=== PATIENT | female | born 2000 | race Caucasian/White ===

== ENCOUNTER 2022-06-25 10:18 | Inpatient (IN) ==
[2022-06-25] MEDS ORDERED: SODIUM CHLORIDE 0.9% 1000ML 1,000 ML IV ONE (11:46)
--- NOTE | 2022-06-25 11:51 | Emergency Department Note ---
History of Present Illness General Chief complaint: Tachycardia Stated complaint: CHEST DISCOMFORT, TACHYCARDIA, HAND NUMBNESS Time Seen by Provider: 06/25/22 11:36 Source: patient, RN notes reviewed and old records reviewed Mode of arrival: ambulatory Limitations: no limitations History of Present Illness Maximum Pain Intensity: 6 This patient is a 22-year-old female who comes in after having heart racing. She says started Thursday evening she felt shaky and her heart was racing up to 149 times a minute she is also some chest discomfort and back pain at times. She felt faint yesterday and tingling in her arms and legs and also her tongue at 1 point this is been bilateral. She has been hyperventilating and feeling anxious she has a history of anxiety in the past with thought this might feel different. No fever no syncope no cough. No blood or melena stool denies she is had nausea and no emesis. Abdominal pain. No diarrhea. No overdose. no suicidal ideation or extra medication Allergies Allergy/AdvReac Type Severity Reaction Status Date / Time No Known Allergies Allergy Unverified 06/25/22 14:46 Past Med/Surg History Family History (Updated 06/25/22 @ 16:05 by AUGUSTO Zelaya) Mother Cancer Sister Schizophrenia Other Depression Denies family history of Clotting disorder Social History Smoking Status: Never smoker Preferred Language: Ma[place] Feels Safe at Home: Yes Immunizations: Past medical historyanxiety. Denies cardiac disease, pulmonary disease, blood clots, thyroid disease. She is not on oral contraceptives. Social historydoes not smoke or drink or use drugs. [employer] student Review of Systems A total of 10 systems reviewed and were otherwise negative Physical Exam Vital Signs Vital Signs - 24 hr 06/25/22 10:25 06/25/22 10:35 06/25/22 10:36 Temperature 36.7 C Temperature Source Temporal Artery Scan Pulse Rate 118 H Pulse Rate [Apical] Pulse Rhythm Regular Pulse Strength Normal Respiratory Rate 20 Respiratory Effort / Characteristics Non-Labored Spontaneous Non-Labored Spontaneous Respiratory Depth Normal Normal Respiratory Pattern Regular Regular Blood Pressure 113/63 Blood Pressure [Right Arm] Blood Pressure Mean 79 Blood Pressure Mean [Right Arm] Blood Pressure Position Sitting Blood Pressure Position [Right Arm] Pulse Oximetry 99 99 Oxygen Delivery Method Room Air Room Air Sepsis Recent Fever Within 48 Hours No Sepsis New/Unexplained Change in Mental Status No Sepsis Action Taken by Nursing No Action Required 06/25/22 11:18 06/25/22 12:30 06/25/22 14:29 Temperature Temperature Source Pulse Rate Pulse Rate [Apical] 97 H 84 96 H Pulse Rhythm Pulse Strength Respiratory Rate 20 18 18 Respiratory Effort / Characteristics Non-Labored Spontaneous Non-Labored Non-Labored Spontaneous Respiratory Depth Normal Normal Normal Respiratory Pattern Blood Pressure Blood Pressure [Right Arm] 130/86 113/65 132/61 Blood Pressure Mean Blood Pressure Mean [Right Arm] 100 81 84 Blood Pressure Position Blood Pressure Position [Right Arm] Lying Lying Pulse Oximetry 98 100 98 Oxygen Delivery Method Room Air Room Air Room Air Sepsis Recent Fever Within 48 Hours Sepsis New/Unexplained Change in Mental Status Sepsis Action Taken by Nursing 06/25/22 15:38 Temperature Temperature Source Pulse Rate Pulse Rate [Apical] 95 H Pulse Rhythm Pulse Strength Respiratory Rate 18 Respiratory Effort / Characteristics Non-Labored Spontaneous Respiratory Depth Normal Respiratory Pattern Blood Pressure Blood Pressure [Right Arm] 120/78 Blood Pressure Mean Blood Pressure Mean [Right Arm] 92 Blood Pressure Position Blood Pressure Position [Right Arm] Lying Pulse Oximetry 100 Oxygen Delivery Method Room Air Sepsis Recent Fever Within 48 Hours Sepsis New/Unexplained Change in Mental Status Sepsis Action Taken by Nursing General: Well developed well nourished young female who appears in no acute distress, breathing comfortably on room air. Normal speech HEENT: Normal cephalic atraumatic. Pupils are equal round and reactive to light. Extraocular movements are intact. Oropharynx is pink with moist mucous membranes. No swelling of the mouth lips or tongue. Neck: Supple with a midline trachea. No meningeal signs or stiffness, no JVD or bruits. No Stridor. Chest: Clear to auscultation bilaterally. No wheezes or rhonchi. No increased work of breathing. Heart: Regular rate and rhythm without murmurs or gallops. Abdomen: Soft nontender, nondistended without rebound guarding or rigidity. Rectal (performed in the presence of a female nurse windlasser): Normal rectal tone, scant stool, guaiac negative Extremities: No cyanosis clubbing or edema. No calf tenderness or assymetry Spine/Back. Non tender to palpation. No CVA tenderness Skin: Good turgor without rashes. Neurologic exam: Cranial nerves two through 12 are intact. Motor and sensation are intact and symmetrical throughout. No Tremor. Finger-nose intact. Course Administered Medications Sodium Chloride (Nss) 500 mls @ 125 mls/hr IV .Q4H GAEL Stop: 07/25/22 14:44 Last Admin: 06/25/22 14:46 Dose: 125 mls/hr Documented By: MARY Discontinued Medications Sodium Chloride (Nss 1000ml) 1,000 mls @ 999 mls/hr IV .Q1H1M ONE Stop: 06/25/22 12:46 Last Infusion: 06/25/22 13:15 Dose: 0 mls/hr Documented By: Admin: 06/25/22 12:14 Dose: 999 mls/hr Documented By: MARY Ioversol (Optiray 300 500ml) 120 ml IV ONCE ONE Stop: 06/25/22 13:54 Last Admin: 06/25/22 13:53 Dose: 120 ml Documented By: JENAE Medical Decision Making Differential Diagnosis Acute coronary syndrome, arrhythmia, PE, anxiety, thyroid disease, electrolyte or metabolic abnormality, infection, toxicologic or metabolic Medical Records Attestation: I reviewed the patient's medical records. Home Medications Current Medication List: was personally reviewed by me Laboratory Data Attestation: I reviewed the patient's lab results. Result diagrams: 06/25/22 11:57 06/25/22 11:57 Lab Results 06/25/22 06/25/22 06/25/22 Range/Units 11:57 11:57 11:57 WBC 3.88 L (4.8-10.8) K/ul RBC 4.46 (3.93-5.22) M/uL Hgb 7.4 L (12.0-16.0) g/dl Hct 27.7 L (34.1-44.9) % MCV 62.1 L (80.0-100.0) fL MCH 16.6 L (25.0-34.0) pg MCHC 26.7 L (32.0-36.0) g/dL RDW Std Deviation 46.1 (36.4-46.3) fL RDW Coeff of Linda 21.8 H (11.5-14.5) % Plt Count 159 (130-400) K/uL Immature Gran % (Auto) 0.3 % Neut % (Auto) 48.9 % Lymph % (Auto) 38.4 % [place] % (Auto) 11.1 % Eos % (Auto) 0.3 % Baso % (Auto) 1.0 % Neut # (Auto) 1.90 (1.4-6.5) K/uL Lymph # (Auto) 1.49 (1.2-3.4) K/uL [place] # (Auto) 0.43 (0.24-0.82) K/uL Eos # (Auto) 0.01 (0-0.50) K/uL Baso # (Auto) 0.04 (0-0.2) K/uL Immature Gran # (Auto) 0.01 (0.00-0.02) K/uL Anisocytosis Present Microcytosis Present Tear Drop Cells 1+ Ovalocytes 1+ Schistocytes Peripher Smr Path Cons D-Dimer 2480 H* (0-500) ug/L FEU Sodium (136-145) mmol/L Potassium (3.5-5.1) mmol/L Chloride (98-107) mmol/L Carbon Dioxide (21-32) mmol/L Anion Gap (3-11) BUN (6-23) mg/dl Creatinine (0.6-1.2) mg/dl Est Cr Clr Drug Dosing ml/min Est GFR ( Amer) ml/min Est GFR (Non-Af Amer) ml/min BUN/Creatinine Ratio (10-20) Glucose (70-99(Fasting)) mg/dl Calcium (8.5-10.1) mg/dl Ferritin (8-388) ng/ml Total Bilirubin (0.2-1.0) mg/dl AST (13-39) U/L ALT (7-52) U/L Alkaline Phosphatase (34-104) U/L Lactate Dehydrogenase (86-244) U/L Troponin I High Sens (0-14) pg/ml Total Protein (6.0-8.3) gm/dl Albumin (3.4-5.0) gm/dl Globulin (2.5-4.0) gm/dl Albumin/Globulin Ratio (0.9-2) Lipase (11-82) U/L TSH (0.300-4.500) uIu/ml HCG, Qual Negative (Negative) Anaplasma Smear Babesia Smear Lyme Disease IgG Ab (Negative) Lyme Disease IgM Ab (Negative) SARS-CoV-2, RNA, NAAT (NEGATIVE) Blood Type Antibody Screen Crossmatch 06/25/22 06/25/22 06/25/22 Range/Units 11:57 11:57 12:15 WBC (4.8-10.8) K/ul RBC (3.93-5.22) M/uL Hgb (12.0-16.0) g/dl Hct (34.1-44.9) % MCV (80.0-100.0) fL MCH (25.0-34.0) pg MCHC (32.0-36.0) g/dL RDW Std Deviation (36.4-46.3) fL RDW Coeff of Linda (11.5-14.5) % Plt Count (130-400) K/uL Immature Gran % (Auto) % Neut % (Auto) % Lymph % (Auto) % [place] % (Auto) % Eos % (Auto) % Baso % (Auto) % Neut # (Auto) (1.4-6.5) K/uL Lymph # (Auto) (1.2-3.4) K/uL [place] # (Auto) (0.24-0.82) K/uL Eos # (Auto) (0-0.50) K/uL Baso # (Auto) (0-0.2) K/uL Immature Gran # (Auto) (0.00-0.02) K/uL Anisocytosis Microcytosis Tear Drop Cells Ovalocytes Schistocytes Peripher Smr Path Cons D-Dimer (0-500) ug/L FEU Sodium 138 (136-145) mmol/L Potassium 4.1 (3.5-5.1) mmol/L Chloride 105 (98-107) mmol/L Carbon Dioxide 25 (21-32) mmol/L Anion Gap 8 (3-11) BUN 9 (6-23) mg/dl Creatinine 0.79 (0.6-1.2) mg/dl Est Cr Clr Drug Dosing 102.2 ml/min Est GFR ( Amer) 124.9 ml/min Est GFR (Non-Af Amer) 107.8 ml/min BUN/Creatinine Ratio 11.4 (10-20) Glucose 96 (70-99(Fasting)) mg/dl Calcium 8.8 (8.5-10.1) mg/dl Ferritin (8-388) ng/ml Total Bilirubin 0.6 (0.2-1.0) mg/dl AST 54 H (13-39) U/L ALT 38 (7-52) U/L Alkaline Phosphatase 68 (34-104) U/L Lactate Dehydrogenase (86-244) U/L Troponin I High Sens 9.9 (0-14) pg/ml Total Protein 6.6 (6.0-8.3) gm/dl Albumin 4.1 (3.4-5.0) gm/dl Globulin 2.5 (2.5-4.0) gm/dl Albumin/Globulin Ratio 1.6 (0.9-2) Lipase 32 (11-82) U/L TSH 2.214 (0.300-4.500) uIu/ml HCG, Qual (Negative) Anaplasma Smear Babesia Smear Lyme Disease IgG Ab (Negative) Lyme Disease IgM Ab (Negative) SARS-CoV-2, RNA, NAAT NEGATIVE (NEGATIVE) Blood Type Antibody Screen Crossmatch 06/25/22 06/25/22 06/25/22 Range/Units 14:22 14:22 14:22 WBC (4.8-10.8) K/ul RBC (3.93-5.22) M/uL Hgb (12.0-16.0) g/dl Hct (34.1-44.9) % MCV (80.0-100.0) fL MCH (25.0-34.0) pg MCHC (32.0-36.0) g/dL RDW Std Deviation (36.4-46.3) fL RDW Coeff of Linda (11.5-14.5) % Plt Count (130-400) K/uL Immature Gran % (Auto) % Neut % (Auto) % Lymph % (Auto) % [place] % (Auto) % Eos % (Auto) % Baso % (Auto) % Neut # (Auto) (1.4-6.5) K/uL Lymph # (Auto) (1.2-3.4) K/uL [place] # (Auto) (0.24-0.82) K/uL Eos # (Auto) (0-0.50) K/uL Baso # (Auto) (0-0.2) K/uL Immature Gran # (Auto) (0.00-0.02) K/uL Anisocytosis Microcytosis Tear Drop Cells Ovalocytes Schistocytes Peripher Smr Path Cons D-Dimer (0-500) ug/L FEU Sodium (136-145) mmol/L Potassium (3.5-5.1) mmol/L Chloride (98-107) mmol/L Carbon Dioxide (21-32) mmol/L Anion Gap (3-11) BUN (6-23) mg/dl Creatinine (0.6-1.2) mg/dl Est Cr Clr Drug Dosing ml/min Est GFR ( Amer) ml/min Est GFR (Non-Af Amer) ml/min BUN/Creatinine Ratio (10-20) Glucose (70-99(Fasting)) mg/dl Calcium (8.5-10.1) mg/dl Ferritin (8-388) ng/ml Total Bilirubin (0.2-1.0) mg/dl AST (13-39) U/L ALT (7-52) U/L Alkaline Phosphatase (34-104) U/L Lactate Dehydrogenase (86-244) U/L Troponin I High Sens (0-14) pg/ml Total Protein (6.0-8.3) gm/dl Albumin (3.4-5.0) gm/dl Globulin (2.5-4.0) gm/dl Albumin/Globulin Ratio (0.9-2) Lipase (11-82) U/L TSH (0.300-4.500) uIu/ml HCG, Qual (Negative) Anaplasma Smear See Comment Babesia Smear See Comment Lyme Disease IgG Ab Negative (Negative) Lyme Disease IgM Ab Negative (Negative) SARS-CoV-2, RNA, NAAT (NEGATIVE) Blood Type B Negative Antibody Screen NEGATIVE Crossmatch See Detail 06/25/22 06/25/22 06/25/22 Range/Units 14:22 14:35 14:35 WBC (4.8-10.8) K/ul RBC (3.93-5.22) M/uL Hgb (12.0-16.0) g/dl Hct (34.1-44.9) % MCV (80.0-100.0) fL MCH (25.0-34.0) pg MCHC (32.0-36.0) g/dL RDW Std Deviation (36.4-46.3) fL RDW Coeff of Linda (11.5-14.5) % Plt Count (130-400) K/uL Immature Gran % (Auto) % Neut % (Auto) % Lymph % (Auto) % [place] % (Auto) % Eos % (Auto) % Baso % (Auto) % Neut # (Auto) (1.4-6.5) K/uL Lymph # (Auto) (1.2-3.4) K/uL [place] # (Auto) (0.24-0.82) K/uL Eos # (Auto) (0-0.50) K/uL Baso # (Auto) (0-0.2) K/uL Immature Gran # (Auto) (0.00-0.02) K/uL Anisocytosis Microcytosis Tear Drop Cells Ovalocytes Schistocytes Peripher Smr Path Cons Cancelled D-Dimer (0-500) ug/L FEU Sodium (136-145) mmol/L Potassium (3.5-5.1) mmol/L Chloride (98-107) mmol/L Carbon Dioxide (21-32) mmol/L Anion Gap (3-11) BUN (6-23) mg/dl Creatinine (0.6-1.2) mg/dl Est Cr Clr Drug Dosing ml/min Est GFR ( Amer) ml/min Est GFR (Non-Af Amer) ml/min BUN/Creatinine Ratio (10-20) Glucose (70-99(Fasting)) mg/dl Calcium (8.5-10.1) mg/dl Ferritin 11.5 (8-388) ng/ml Total Bilirubin (0.2-1.0) mg/dl AST (13-39) U/L ALT (7-52) U/L Alkaline Phosphatase (34-104) U/L Lactate Dehydrogenase 381 H (86-244) U/L Troponin I High Sens 8.8 (0-14) pg/ml Total Protein (6.0-8.3) gm/dl Albumin (3.4-5.0) gm/dl Globulin (2.5-4.0) gm/dl Albumin/Globulin Ratio (0.9-2) Lipase (11-82) U/L TSH (0.300-4.500) uIu/ml HCG, Qual (Negative) Anaplasma Smear Babesia Smear Lyme Disease IgG Ab (Negative) Lyme Disease IgM Ab (Negative) SARS-CoV-2, RNA, NAAT (NEGATIVE) Blood Type Antibody Screen Crossmatch Imaging Data Attestation: I personally reviewed and interpreted this imaging study as follows: My Impression: Chest x-ray-no acute infiltrate, failure, pneumothorax seen Radiologist's Impression: Chest X-Ray 06/25/22 11:46 XR chest 1V portable HISTORY: 22 years-old Female Chest Pain acute atypical chest pain COMPARISON: None TECHNIQUE: Portable AP view of the chest FINDINGS: The patient is slightly rotated towards the left. The cardiomediastinal and hilar silhouettes are within normal limits. No pneumothorax, pleural effusion, airspace consolidation or overt pulmonary edema. Bones of the chest appear grossly intact. IMPRESSION: No acute process. ACT 112: Negative or not required by law. The above report was generated using voice recognition software. It may contain grammatical, syntax or spelling errors. Electronically signed by: Tushar Cox M.D. 06/25/2022 12:15 PM Chest CTA 06/25/22 12:31 CHEST CTA for PULMONARY ARTERIES CT DOSE: 229.65 mGy.cm HISTORY: Atypical chest pain. Dysrhythmia. TECHNIQUE: Multiaxial CT images of the chest were performed following the intravenous administration of contrast to evaluate the pulmonary arteries. Maximal intensity projection images were also obtained. A dose lowering technique was utilized adhering to the principles of ALARA. COMPARISON STUDY: None. FINDINGS: Limited views of the upper abdomen demonstrate a normal liver and left adrenal gland. The right adrenal gland is not well visualized on this study. The spleen is partially visualized but appears enlarged. Normal esophagus. A few borderline enlarged lymph nodes within the left neck base. Dominant left cervical lymph node on image 245 measures 17 x 8 mm. The thyroid gland enhances normally. No mediastinal, hilar, or axillary lymphadenopathy. The heart is normal in size. No pleural or pericardial effusions. Normal caliber thoracic aorta with no evidence for dissection. No filling defects within the pulmonary arteries to suggest a pulmonary embolus. No suspicious lytic or blastic osseous lesions. No pneumothorax. The central airways are patent. No focal lung consolidations to suggest pneumonia. IMPRESSION: 1. No evidence for pulmonary embolus. 2. The spleen is partially visualized but appears enlarged 3. There are a few borderline-enlarged left lower cervical lymph nodes. ACT 112: Negative or not required by law. Electronically signed by: Delfino Mercado M.D. 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 she has been having fast heart rate along other planes. Has been feeling anxious as well. She had tingling in her arms and legs. She has a normal neurologic exam her vital signs are stable on monitor. she is in normal sinus rhythm. EKG was obtained and shows a normal sinus rhythm at 85 without ischemic changes. IV access established and she was hydrated with and IV normal saline bolus she had multiple blood testing obtained as well as a chest x-ray. She was reassessed frequently. She was COVID tested. COVID testing was negative.. D- dimer came back significantly elevated and surprisingly her hemoglobin was very low at 7.4. She reports no blood loss I did a rectal exam there is no blood in her stool. She is not vegetarian. White count is also low so it could also be related to a tickborne illness and a panel was ordered for that as well. There was concerned that there could be related to bone marrow or malignancy process I did a peripheral smear and the pathologist looked at this as well. The admitting team is going to admit her for further treatment and evaluation. CAT scan showed no evidence of PE but she did have some splenomegaly. It may ultimately be a viral illness. She will need further evaluation however. Continuous cardiac monitoring: Orders placed in EMR for continuous cardiac monitoring. Upon my interpretation patient noted to be in normal sinus rhythm with a rate of 95 Impression & Plan Chest pain, Anemia, Tachycardia, Splenomegaly, Lab test negative for COVID-19 virus Discharge Plan Visit Data Chief Complaint: Tachycardia Stated Complaint: CHEST DISCOMFORT, TACHYCARDIA, HAND NUMBNESS ED Provider: Loy Silveira Discharge Problem: Chest pain, Anemia, Tachycardia, Splenomegaly, Lab test negative for COVID-19 virus Forms Stand Alone Forms: My [facility] Referrals Referrals: PCP,NO [Physician] -
--- NOTE | 2022-06-25 12:17 | XRay Report ---
XR chest 1V portable HISTORY: 22 years-old Female Chest Pain acute atypical chest pain COMPARISON: None TECHNIQUE: Portable AP view of the chest FINDINGS: The patient is slightly rotated towards the left. The cardiomediastinal and hilar silhouettes are wit hin normal limits. No pneumothorax, pleural effusion, airspace consolidation or overt pulmonary edema . Bones of the chest appear grossly intact. IMPRESSION: No acute process. ACT 112: Negative or not required by law. The above report was generated using voice recognition software. It may contain grammatical, syntax o r spelling errors. Electronically signed by: Tushar Cox M.D. 06/25/2022 12:15 PM
[2022-06-25 12:27] LABS: D Dimer 2480 ug/L FEU (0-500)
[2022-06-25 12:37] LABS: Pregnancy Test, Serum Negative (Negative)
[2022-06-25 12:39] LABS: Albumin Globulin Ratio 1.6 (0.9-2); Albumin Level 4.1 gm/dl (3.4-5.0); BUN Creatinine Ratio 11.4 (10-20); Bilirubin,Total 0.6 mg/dl (0.2-1.0); Calcium 8.8 mg/dl (8.5-10.1); Creatinine Clr Calc Pharmacy 102.2 ml/min; Est GFR (African American) 124.9 ml/min; Est GFR (Non-African American) 107.8 ml/min; Globulin 2.5 gm/dl (2.5-4.0); Potassium 4.1 mmol/L (3.5-5.1); Total Protein 6.6 gm/dl (6.0-8.3)
[2022-06-25 12:44] LABS: Hematocrit (blood only) 27.7 % (34.1-44.9); Hemoglobin 7.4 g/dl (12.0-16.0); Mean Corpuscular Hemoglobin 16.6 pg (25.0-34.0); Mean Corpuscular Hgb Conc 26.7 g/dL (32.0-36.0); Mean Corpuscular Volume 62.1 fL (80.0-100.0); Platelet Count 159 K/uL (130-400); RDW Coefficient of Variation 21.8 % (11.5-14.5); RDW Standard Deviation 46.1 fL (36.4-46.3); Red Blood Count 4.46 M/uL (3.93-5.22); Troponin I High Sensitivity 9.9 pg/ml (0-14); White Blood Count 3.88 K/ul (4.8-10.8)
[2022-06-25 12:58] LABS: Anisocytosis Present; Basophils # (auto) 0.04 K/uL (0-0.2); Eosinophils # (auto) 0.01 K/uL (0-0.50); Eosinophils % (auto) 0.3 %; Immature Granulocytes # (auto) 0.01 K/uL (0.00-0.02); Immature Granulocytes % (auto) 0.3 %; Lymphocytes # (auto) 1.49 K/uL (1.2-3.4); Lymphocytes % (auto) 38.4 %; Microcytosis Present; Monocytes # (auto) 0.43 K/uL (0.24-0.82); Monocytes % (auto) 11.1 %; Neutrophils % (auto) 48.9 %; Ovalocytes 1+; Tear Drop Cells 1+
[2022-06-25] MEDS ORDERED: OPTIRAY 300 500mL IV ONE (13:53)
--- NOTE | 2022-06-25 14:33 | CT Scan Report ---
CHEST CTA for PULMONARY ARTERIES CT DOSE: 229.65 mGy.cm HISTORY: Atypical chest pain. Dysrhythmia. TECHNIQUE: Multiaxial CT images of the chest were performed following the intravenous administration of contrast to evaluate the pulmonary arteries. Maximal intensity projection images were also obtaine d. A dose lowering technique was utilized adhering to the principles of ALARA. COMPARISON STUDY: None. FINDINGS: Limited views of the upper abdomen demonstrate a normal liver and left adrenal gland. The r ight adrenal gland is not well visualized on this study. The spleen is partially visualized but appea rs enlarged. Normal esophagus. A few borderline enlarged lymph nodes within the left neck base. Domin ant left cervical lymph node on image 245 measures 17 x 8 mm. The thyroid gland enhances normally. No mediastinal, hilar, or axillary lymphadenopathy. The heart is normal in size. No pleural or pericard ial effusions. Normal caliber thoracic aorta with no evidence for dissection. No filling defects with in the pulmonary arteries to suggest a pulmonary embolus. No suspicious lytic or blastic osseous lesi ons. No pneumothorax. The central airways are patent. No focal lung consolidations to suggest pneumon ia. IMPRESSION: 1. No evidence for pulmonary embolus. 2. The spleen is partially visualized but appears enlarged 3. There are a few borderline-enlarged left lower cervical lymph nodes. ACT 112: Negative or not required by law. Electronically signed by: Delfino Mercado M.D. 06/25/2022 2:31 PM
[2022-06-25] MEDS ORDERED: SODIUM CHLORIDE 0.9% 500 ML IV SCH (14:45)
[2022-06-25 15:09] LABS: Troponin I High Sensitivity 8.8 pg/ml (0-14)
[2022-06-25 15:23] LABS: Ferritin 11.5 ng/ml (8-388)
[2022-06-25 15:41] LABS: Lyme Ab IgG w/WB Rflx Negative (Negative); Lyme Ab IgM w/WB Rflx Negative (Negative)
[2022-06-25] MEDS ORDERED: SODIUM CHLORIDE 0.9% 250 ML IV PRN (15:41)
--- NOTE | 2022-06-25 16:13 | History & Physical Report ---
Date of Service June 25, 2022 Assessment & Plan (1) Anemia: Plan: Acute onset of symptoms of fatigue,tachycardia, dizziness, dyspnea, and tingling of extremities - labs consistent with a microcytic hypochromic anemia with DDX: Iron deficiency vs. thalassemia vs. AOCD, hemolysis vs. infection vs. blood dyscrasia/proliferative disorder vs. lymphoma - Peripheral smear as above without schistocytes and no evidence of hemolysis or myelodysplasia - borderline lymphadenopathy - Iron panel/ferritin- Iron 13, TIBC 402, Unsat IBC 389, Transferrin sat- 3%, ferritin 11.5 - LDH - 381 - Haptoglobin pending - PT/INR/PTT- 12.3/1.2/28.5 - Fibrinogen 278 - Anaplasmosis and Babesiosis negative - Hematology consultation placed appreciate evaluation for diagnostic Admit to medical telemetry overnight- transfuse 1 unit PRBC, likely iron in the morning peding the above (2) Tachycardia: Plan: Likely related to above anemia - ECG without acute changes - negative for PE - follow with PRBC transfusion (3) Splenomegaly: Plan: Likely related to anemia follow up imaging or differential pending the above workup (4) Enlarged lymph node in neck: Plan: borderline enlarged- on imaging soft and mobile - history of seasonal allergies endorsed - with itchy eyes and sinus drainage - mono spot pending - COVID negative - no other areas of lymphadenopathy appreciated on palpation History of Present Illness Primary Care Provider: [facility] [employer] 22 YOF with no medical history 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. Patient presents to the [facility] today for 2 day history of fatigue, chills with rigors, numbness in toes and feet. This progressed overnight with more shivering and lower back pain, dyspnea, racing HR. She came to the [facility] for eval uation. She had routine labs performed and had a CXR, ECG, and CTA of the chest performed. Her laboratory work was notable for leukopenia, anemia, low MCV/MCH, D-dimer of 2480. CTA of her chest was performed which was negative for PE, probably enlarged spleen and borderline lymphadenopathy at the base of neck. Medicine was consulted for evaluation and admission. Peripheral Smear was ordered stat and interpreted, as original was noted for schistocytes but microcopy reviewed did not reveal. Tick borne labs were sent, hemolysis labs were sent, mono with reflex ordered. Coagulation studies to include fibrinogen also ordered. Peripheral smear confirms microcytic hypochromic anemias and leukopenia, and no overt changes of a myelodysplastic process or hemolytic anemia. Patient will be admitted, given 1u PRBC and await results of the above testing. Patient reports eating well balanced diet, she has a twin sister and older sister with no history of anemias or cancers. Mother and mother family + BRCA breast cancer, she reports testing negative for BRCA gene. Reports her last menstrual cycle last week as normal and tie bucker and that she has never had irregularity or heavy periods. She has no pets at home or at school, she reports that she has not been outside really or in grassy areas. No other illness, no new vaccinations or medications as well as no supplements. Denies any cravings of ice or chelating of the corners of her mouth. No other skin lesions reported, no myalgias. COVID test on admission is: NEGATIVE Allergies Allergy/AdvReac Type Severity Reaction Status Date / Time No Known Allergies Allergy Unverified 06/25/22 14:46 Home Medications Medication Instructions Recorded Confirmed Type No Known Home Medications 06/25/22 06/25/22 History Past Med/Surg History Family History (Updated 06/25/22 @ 16:05 by AUGUSTO Zelaya) Mother Cancer Sister Schizophrenia Other Depression Denies family history of Clotting disorder Social History Smoking Status: Never smoker Preferred Language: Syriac Feels Safe at Home: Yes Review of Systems Review of Systems: REVIEW OF SYSTEMS: Constitutional: (+) chills, No fever, sweats Eyes: No diplopia, no worsening or blurred vision ENT: normal hearing, no trouble swallowing Respiratory: (+) dyspnea with exertion, No cough, sputum, dyspnea at rest or on exertion Cardiovascular: (+) palpitations, No chest pain, tightness or palpitations Abdomen: No pain, nausea, vomiting, diarrhea or constipation Musculoskeletal: No joint pain, calf pain, swelling Neurologic: (+) tingling of hands and feet, No weakness, numbness/tingling, or balance problems Psychiatric: No anxiety or depression Skin: No rash or itch Physical Exam Physical Exam: PHYSICAL EXAM: General: awake, alert, no apparent distress Head: Normocephalic, atraumatic ENT: PERRL, EOMI, no pharyngeal exudate, mucous membranes moist, conjunctivae pale, gums pale, tongue normal Neuro: AAO x 3, speech clear and appropriate, strength intact bilaterally 5/5, sensation intact and equal all extremities and dermatomes, no pronator drift Chest: equal rise and fall of the chest, no accessory muscle use, no heaves or thrills, Clear to auscultation, on room air, Cardiac: Regular rate and rhythm, telemetry reviewed, skin warm dry, cap refill <3 seconds, peripheral pulses +2 no JVD, no murmur, no JVD, no edema GI: NABS x 4 quadrants, soft, nontender to palpation, no rebound, guarding or tenderness : Spontaneously voiding, no pain, no CVA tenderness, Extremities: Normal inspection, no peripheral edema or erythema, calfs nontender to palpation Psych: Normal mood and affect Skin: no rash or erythema Results & Data Results & Data ([facility]) Vital Signs (Past 12 Hours) Vital Signs Temp Pulse Pulse Resp BP BP Pulse Ox 06/25/22 15:38 95 H 18 120/78 100 06/25/22 14:29 96 H 18 132/61 98 06/25/22 12:30 84 18 113/65 100 06/25/22 11:18 97 H 20 130/86 98 06/25/22 10:35 99 06/25/22 10:25 36.7 C 118 H 20 113/63 99 O2 Del Method 06/25/22 15:38 Room Air 06/25/22 14:29 Room Air 06/25/22 12:30 Room Air 06/25/22 11:18 Room Air 06/25/22 10:35 Room Air 06/25/22 10:25 Room Air Laboratory Results Abnormal lab results 06/25/22 06/25/22 06/25/22 Range/Units 11:57 11:57 11:57 WBC 3.88 L (4.8-10.8) K/ul Hgb 7.4 L (12.0-16.0) g/dl Hct 27.7 L (34.1-44.9) % MCV 62.1 L (80.0-100.0) fL MCH 16.6 L (25.0-34.0) pg MCHC 26.7 L (32.0-36.0) g/dL RDW Coeff of Linda 21.8 H (11.5-14.5) % D-Dimer 2480 H* (0-500) ug/L FEU AST 54 H (13-39) U/L Lactate Dehydrogenase (86-244) U/L Crossmatch 06/25/22 06/25/22 Range/Units 14:22 14:35 WBC (4.8-10.8) K/ul Hgb (12.0-16.0) g/dl Hct (34.1-44.9) % MCV (80.0-100.0) fL MCH (25.0-34.0) pg MCHC (32.0-36.0) g/dL RDW Coeff of Linda (11.5-14.5) % D-Dimer (0-500) ug/L FEU AST (13-39) U/L Lactate Dehydrogenase 381 H (86-244) U/L Crossmatch See Detail Diagnostic Findings Chest X-Ray 06/25/22 11:46 XR chest 1V portable HISTORY: 22 years-old Female Chest Pain acute atypical chest pain COMPARISON: None TECHNIQUE: Portable AP view of the chest FINDINGS: The patient is slightly rotated towards the left. The cardiomediastinal and hilar silhouettes are within normal limits. No pneumothorax, pleural effusion, airspace consolidation or overt pulmonary edema. Bones of the chest appear grossly intact. IMPRESSION: No acute process. ACT 112: Negative or not required by law. The above report was generated using voice recognition software. It may contain grammatical, syntax or spelling errors. Electronically signed by: Tushar Cox M.D. 06/25/2022 12:15 PM Chest CTA 06/25/22 12:31 CHEST CTA for PULMONARY ARTERIES CT DOSE: 229.65 mGy.cm HISTORY: Atypical chest pain. Dysrhythmia. TECHNIQUE: Multiaxial CT images of the chest were performed following the intravenous administration of contrast to evaluate the pulmonary arteries. Maximal intensity projection images were also obtained. A dose lowering technique was utilized adhering to the principles of ALARA. COMPARISON STUDY: None. FINDINGS: Limited views of the upper abdomen demonstrate a normal liver and left adrenal gland. The right adrenal gland is not well visualized on this study. The spleen is partially visualized but appears enlarged. Normal esophagus. A few borderline enlarged lymph nodes within the left neck base. Dominant left cervical lymph node on image 245 measures 17 x 8 mm. The thyroid gland enhances normally. No mediastinal, hilar, or axillary lymphadenopathy. The heart is normal in size. No pleural or pericardial effusions. Normal caliber thoracic aorta with no evidence for dissection. No filling defects within the pulmonary arteries to suggest a pulmonary embolus. No suspicious lytic or blastic osseous lesions. No pneumothorax. The central airways are patent. No focal lung cons olidations to suggest pneumonia. IMPRESSION: 1. No evidence for pulmonary embolus. 2. The spleen is partially visualized but appears enlarged 3. There are a few borderline-enlarged left lower cervical lymph nodes. ACT 112: Negative or not required by law. Electronically signed by: Delfino Mercado M.D. 06/25/2022 2:31 PM Medications Administered Sodium Chloride (Nss) 500 mls @ 125 mls/hr IV .Q4H GAEL Stop: 07/25/22 14:44 Last Admin: 06/25/22 14:46 Dose: 125 mls/hr Documented By: MARY Discontinued Medications Sodium Chloride (Nss 1000ml) 1,000 mls @ 999 mls/hr IV .Q1H1M ONE Stop: 06/25/22 12:46 Last Infusion: 06/25/22 13:15 Dose: 0 mls/hr Documented By: Admin: 06/25/22 12:14 Dose: 999 mls/hr Documented By: MARY Ioversol (Optiray 300 500ml) 120 ml IV ONCE ONE Stop: 06/25/22 13:54 Last Admin: 06/25/22 13:53 Dose: 120 ml Documented By: JENAE ECG Additional Comments: Normal sinus rhythm Normal ECG No previous ECGs available Code Status & VTE Plan Code Status CODE: FULL VTE: SCDS, ambulation VTE Prophylaxis Plan VTE Prophylaxis will be ordered: Yes Supervising Physician Co-Signing Physician Notes I supervised AUGUSTO [place] on this admission. I interviewed and examined the patient independently of him. The plan is as written in his note except for any following changes/exceptions: None 22yo F w/ no major PMH who presents with 2 days of fevers/chills, and now some numbness tingling in her hands. Found to be leukopenic and anemic on labs. Anemia is likely due to iron deficiency as ferritin and transferrin sat both low. Unclear source of infection. Peripheral smear reassuring, but certainly have some concern for lymphoma or other malignancy given the fevers and lymphadenopathy seen on CT chest. Will get heme/onc consult, give 1 unit PRBCs, check for infectious sources. PG Care Time/CCT Total # of Minutes Spent Total Time Spent with Patient: Total time spent is greater than 50% in coordination of care (as documented) at patient's floor/unit and/or counseling patient: Coding Level of Care Code 82302 Initial Inpt Care Lvl 3 Diagnoses Anemia D64.9 Tachycardia R00.0 Splenomegaly R16.1 Enlarged lymph node in neck R59.0
[2022-06-25 16:38] LABS: Fibrinogen 278 mg/dl (184-400); INR 1.2 (0.9-1.1); Partial Thromboplastin Time 28.5 Seconds (21.0-31.0); Prothrombin Time 12.3 Seconds (9.0-12.0)
[2022-06-25 16:58] LABS: Iron 13 mcg/dl (35-150); Total Iron Binding Cap Calc 402 mcg/dl (250-450); Transferrin (FE) Percent Satur 3 % (15-50); Unsaturated Iron Binding Cap 389 mcg/dl (155-355)
[2022-06-25] MEDS ORDERED: ACETAMINOPHEN 500 MG TAB PO STA (17:29)
[2022-06-25] MEDS ORDERED: ONDANSETRON INJ 2 MG/ML 2 ML VIAL IV PRN (18:31)
[2022-06-25] MEDS ORDERED: IBUPROFEN 200 MG TAB PO STA (19:12)
[2022-06-25 20:48] LABS: Immature Retic Fraction 28.5 % (3.0-15.9); Reticulated Hemoglobin 18.6 pg (28.2-36.6); Reticulocyte % 1.4 % (0.5-2.0); Reticulocytes # 0.06 10^6/uL (0.02-0.10)
[2022-06-25 23:00] LABS: Appearance Urine Clear (Clear); Bilirubin Urine Negative (Negative); Blood Urine Negative (Negative); Color Urine Yellow; Glucose Urine UA Negative (Negative); Ketones Urine Negative (Negative); Leukocyte Esterase Urine Negative (Negative); Nitrite Urine Negative (Negative); Protein Urine Negative (Negative); Specific Gravity Urine 1.009 (1.000-1.030); Urobilinogen Urine Negative (Negative)
[2022-06-26 01:35] LABS: Hematocrit (blood only) 27.1 % (34.1-44.9); Hemoglobin 7.5 g/dl (12.0-16.0)
[2022-06-26 04:08] LABS: Hematocrit (blood only) 29.5 % (34.1-44.9)
[2022-06-26 04:29] LABS: BUN Creatinine Ratio 12.5 (10-20); Calcium 8.1 mg/dl (8.5-10.1); Creatinine Clr Calc Pharmacy 126.2 ml/min; Est GFR (African American) 148.9 ml/min; Est GFR (Non-African American) 128.5 ml/min; Magnesium 2.1 mg/dl (1.7-2.4); Potassium 3.5 mmol/L (3.5-5.1)
[2022-06-26 05:04] LABS: Hematocrit (blood only) 30.1 % (34.1-44.9); Hemoglobin 8.2 g/dl (12.0-16.0); Mean Corpuscular Hemoglobin 17.9 pg (25.0-34.0); Mean Corpuscular Hgb Conc 27.2 g/dL (32.0-36.0); Mean Corpuscular Volume 65.7 fL (80.0-100.0); Platelet Count 122 K/uL (130-400); RDW Standard Deviation 56.5 fL (36.4-46.3); Red Blood Count 4.58 M/uL (3.93-5.22); White Blood Count 2.69 K/ul (4.8-10.8)
[2022-06-26 05:09] LABS: Anisocytosis Present; Basophils # (auto) 0.04 K/uL (0-0.2); Basophils % (auto) 1.5 %; Eosinophils # (auto) 0.05 K/uL (0-0.50); Eosinophils % (auto) 1.9 %; Hypochromasia Present; Immature Granulocytes # (auto) 0.01 K/uL (0.00-0.02); Immature Granulocytes % (auto) 0.4 %; Lymphocytes # (auto) 1.16 K/uL (1.2-3.4); Lymphocytes % (auto) 43.1 %; Microcytosis Present; Monocytes # (auto) 0.37 K/uL (0.24-0.82); Monocytes % (auto) 13.8 %; Neutrophils # (auto) 1.06 K/uL (1.4-6.5); Neutrophils % (auto) 39.3 %; Ovalocytes 1+; Platelet Estimate Decreased (Normal); Polychromasia 1+
[2022-06-26] MEDS: ACETAMINOPHEN 325 MG TAB PO PRN ×2 (06:34→19:13)
--- NOTE | 2022-06-26 07:29 | Hospitalist Progress Note ---
Date of Service June 26, 2022 Assessment & Plan (1) Anemia: Plan: Pancytopenia w/ splenomegaly and lymphadenopathy Acute onset of symptoms of fatigue,tachycardia, dizziness, dyspnea, and tingling of extremities - labs consistent with a microcytic hypochromic anemia with leukopenia DDX: Iron deficiency vs. thalassemia vs. AOCD, hemolysis vs. infection vs. blood dyscrasia/proliferative disorder vs. lymphoma - Peripheral smear as above without schistocytes and no evidence of hemolysis or myelodysplasia - borderline lymphadenopathy seen on CT in addition to splenomegaly - Iron panel/ferritin- Iron 13, TIBC 402, Unsat IBC 389, Transferrin sat- 3%, ferritin 11.5 - LDH - 381 - Haptoglobin pending - PT/INR/PTT- 12.3/1.2/28.5 - Fibrinogen 278 - Anaplasmosis and Babesiosis negative, PCR pending - Lyme and monospot both negtive - Ehrilchia, EBV pending - Received 1 unit PRBC 06/26 - Hematology consultation placed - Continue to trend CBC Neutropenic Fever - Started on Zosyn and Daptomycin for empiric coverage in addition to doxycycline to cover for tick borne diseases - Continue Tylenol prn for antipyretic Tachycardia - ECG without acute changes - negative for PE -has improved following PRBC (2) Tachycardia: (3) Splenomegaly: (4) Enlarged lymph node in neck: (5) Neutropenic fever: Admission and Anticipated Discharge Date Admission Date: June 25, 2022 Supervising Physician Co-Signing Physician Notes Attending attestation Pt seen and examined in concert with Dr. Deluna. In agreement with the documented findings as noted in the resident documentation with any exceptions or additions as noted here. Significant improvement in symptoms without reports of cough, n/v/d/c, abd pain, urinary complaints, earache, CROSS. VS, nursing notes, ED documentation, labs, imaging reviewed. On examination, S1/S2 nl RRR no MCG. CTAB. Abd NT/ND BS+ve. Diaphoretic. 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 Dapto, Zosyn and PO doxycyline. Antipyretic therapy as noted. Else see resident documentation as noted. Kermit Chun is a 22 year old female with no significant past medical history that presents with 2 days of fatigue, chills, numbness in toes/feet, dyspnea and racing heart. ED workup notable for leukopenia, anemia, low MCV/MCH, D-dimer of 2480. CTA was negative for PE, probable enlarged spleen and borderline left lower cervical lymph nodes. Physical Exam Physical Exam: Constitutional: well-appearing, no acute distress HEENT: NCAT, no conjunctival injection CV: regular rhythm, no murmur appreciated, extremities well-perfused, no LE edema Resp: CTABL, no wheezes/rales/rhonchi appreciated, no increased work of breathing GI: soft, nondistended, nontender, BS normoactive MSK: no gross deformities appreciated Skin: warm, dry, no rash appreciated Neuro: alert, oriented, no focal neurologic deficit appreciated Results & Data Results & Data ([facility]) Vital Signs (Past 12 Hours) Vital Signs Temp Pulse Pulse Resp BP BP Pulse Ox 06/26/22 06:44 39.1 C H 93 H 20 110/67 99 06/26/22 06:34 39.1 C H 06/26/22 03:07 36.8 C 61 18 96/55 L 100 06/26/22 00:23 36.9 C 88 20 111/70 98 06/25/22 23:37 37.2 C 88 20 102/53 L 98 06/25/22 23:35 91 H 06/25/22 23:05 36.8 C 94 H 20 114/75 94 06/25/22 22:35 37.1 C 87 22 98/53 L 96 06/25/22 22:20 37.4 C 88 18 101/62 97 06/25/22 22:03 37.1 C 88 18 104/61 97 06/25/22 21:36 37.5 C O2 Del Method 06/26/22 06:44 Room Air 06/26/22 06:34 06/26/22 03:07 Room Air 06/26/22 00:23 06/25/22 23:37 06/25/22 23:35 06/25/22 23:05 06/25/22 22:35 06/25/22 22:20 06/25/22 22:03 06/25/22 21:36 Resident Activity Tracking Resident Involvement: Resident Care Provided Care Provided: Adult Hospital Medicine (1) Anemia Anemia type: unspecified type Qualified Code(s): D64.9 - Anemia, unspecified
--- NOTE | 2022-06-26 10:08 | Electrocardiogram Report ---
Test Reason : Blood Pressure : / mmHG Vent. Rate : 085 BPM Atrial Rate : 085 BPM P-R Int : 132 ms QRS Dur : 078 ms QT Int : 322 ms P-R-T Axes : 043 024 054 degrees QTc Int : 383 ms Normal sinus rhythm Normal ECG No previous ECGs available Confirmed by Gibran Merrill ([id number]) on 06/26/2022 10:07:58 AM Referred By: Confirmed By:Gibran Merrill
[2022-06-26 10:50] LABS: Albumin Level 3.5 gm/dl (3.4-5.0); Bilirubin Direct 0.1 mg/dl (0-0.2); Bilirubin,Total 0.5 mg/dl (0.2-1.0); Total Protein 5.8 gm/dl (6.0-8.3)
[2022-06-26] MEDS: DAPTOmycin 350 MG in SYRINGE 0 ML IV SCH (13:23)
[2022-06-26] MEDS: DOXYCYCLINE HYCLATE 100 MG in DEXTROSE 5% 100 ML IV SCH ×2 (13:24→15:43)
[2022-06-26] MEDS: PIPERACILLIN/TAZOBACTAM 4.5 GM in DEXTROSE 5% 100 ML IV SCH ×2 (15:42→20:44)
[2022-06-26 16:58] LABS: ALC (manual) 1.41 K/uL (1.2-3.4); ANC (manual) 1.94 K/uL (1.4-6.5); Basophils # (manual) 0.08 K/uL (0-0.2); Basophils % (manual) 2 %; Large Granular Lymph # (manua 0.65 K/uL; Large Granular Lymph % (manual) 17 %; Lymphocytes # (manual) 0.76 K/uL (1.2-3.4); Lymphocytes % (manual) 20 %; Microcytosis Present; Monocytes # (manual) 0.42 K/uL (0.24-0.82); Monocytes % (manual) 11 %; Neutrophils # (manual) 1.94 K/uL (1.4-6.5); Neutrophils % (manual) 51 %; Ovalocytes 1+; Platelet Estimate Decreased (Normal); Polychromasia 1+; Schistocytes 1+; Tear Drop Cells 1+
[2022-06-26 16:59] LABS: Hematocrit (blood only) 32.3 % (34.1-44.9); Hemoglobin 8.8 g/dl (12.0-16.0); Mean Corpuscular Hemoglobin 17.8 pg (25.0-34.0); Mean Corpuscular Hgb Conc 27.2 g/dL (32.0-36.0); Mean Corpuscular Volume 65.3 fL (80.0-100.0); Platelet Count 132 K/uL (130-400); RDW Coefficient of Variation 25.1 % (11.5-14.5); RDW Standard Deviation 55.9 fL (36.4-46.3); Red Blood Count 4.95 M/uL (3.93-5.22); White Blood Count 3.81 K/ul (4.8-10.8)
[2022-06-26] MEDS ORDERED: DOXYCYCLINE HYCLATE 100 MG CAP PO SCH (21:00)
[2022-06-26] MEDS ORDERED: diphenhydrAMINE Capsule 25 MG CAP PO ONE (21:55)
--- NOTE | 2022-06-26 22:13 | Consultation Report ---
DATE OF SERVICE: 06/26/2022. REASON FOR CONSULTATION: Anemia. HISTORY OF PRESENT ILLNESS: Ms. Osuna is a pleasant 22-year-old female who presented to the ER at [facility] on 06/25/2022 with complaints of fever, fatigue, palpitations and brayden rtness of breath. Labs obtained while in the ED revealed anemia with hemoglobin of 8.0, MCV of 65.7 and slightly low platelet count of 122,000. Of note, her white cell count was also slightly low at 2 .69. At the time of seeing the patient, she complained of shortness of breath and fever, but otherwi se denies any other issues. Denies heavy menstrual periods or hematochezia. ALLERGIES: No known drug allergies. HOME MEDICATIONS: None. FAMILY HISTORY: Significant for BRCA mutation in her maternal side of the family. She was tested an d was negative. SOCIAL HISTORY: Denies smoking, alcohol and illicit drug use. REVIEW OF SYSTEMS: As noted in the HPI. PHYSICAL EXAMINATION: Unremarkable. LABORATORY DATA: Significant for white cell count on 06/26/2022 of 3.81, hemoglobin 8.8, hematocrit of 32.3, MCV of 65, platelet count of 132,000 with iron studies compatible with iron-deficiency anemi a, serum iron of 13, TIBC of 402, unsaturated IBC of 389, transferrin saturation of 3% and ferritin o f 11.5. IMAGING STUDIES: CTA chest on 06/25/2022, impression: 1. No evidence of PE. 2. Spleen is partially visualized, but appears enlarged. 3. Few borderline enlarged left lower cervical lymph nodes. ASSESSMENT: 1. Microcytic anemia secondary to iron deficiency. 2. Mild leukopenia, likely due to infection. 3. A few borderline enlarged left lower cervical lymph nodes, likely inflammatory/due to infection. 4. Possible splenomegaly. A pleasant female who presented with symptoms of anemia as well as possible underlying infection and was found to have severe microcytic anemia. Based on her iron studies, she is clearly iron deficient , which is most likely responsible for her anemia. We would recommend either oral iron supplementati on or IV iron. Also, recommend workup for underlying infection given the left lower cervical lymph n odes noted on imaging as well as persistent fevers. For her possible splenomegaly, she will require abdominal imaging to better assess her spleen as splenomegaly was seen unremarkable on physical exami nation. PLAN: 1. Recommend abdominal imaging to evaluate for splenomegaly (this can be performed as an outpatient) . 2. Recommend IV iron or oral iron supplementation for iron-deficiency anemia. 3. Workup for underlying infection. Thank you for this consult. Hematology will plan to see the patient upon discharge from hospital. Kristen wilder feel free to call if you have any further questions. Job ID: [id number]
[2022-06-27 06:37] LABS: Hematocrit (blood only) 30.5 % (34.1-44.9); Hemoglobin 8.5 g/dl (12.0-16.0); Mean Corpuscular Hemoglobin 17.9 pg (25.0-34.0); Mean Corpuscular Hgb Conc 27.9 g/dL (32.0-36.0); Mean Corpuscular Volume 64.3 fL (80.0-100.0); Nucleated RBC # (auto) 0.02 K/uL (0-0); Nucleated RBC % (auto) 0.5 %; Platelet Count 133 K/uL (130-400); RDW Standard Deviation 55.4 fL (36.4-46.3); Red Blood Count 4.74 M/uL (3.93-5.22); White Blood Count 4.25 K/ul (4.8-10.8)
[2022-06-27 07:12] LABS: Anisocytosis Present; Basophils # (auto) 0.06 K/uL (0-0.2); Basophils % (auto) 1.4 %; Eosinophils # (auto) 0.04 K/uL (0-0.50); Eosinophils % (auto) 0.9 %; Immature Granulocytes # (auto) 0.02 K/uL (0.00-0.02); Immature Granulocytes % (auto) 0.5 %; Lymphocytes # (auto) 2.42 K/uL (1.2-3.4); Lymphocytes % (auto) 56.9 %; Microcytosis Present; Monocytes # (auto) 0.36 K/uL (0.24-0.82); Monocytes % (auto) 8.5 %; Neutrophils # (auto) 1.35 K/uL (1.4-6.5); Neutrophils % (auto) 31.8 %; Ovalocytes 1+; Polychromasia 1+
[2022-06-27 07:14] LABS: Calcium 8.5 mg/dl (8.5-10.1); Creatinine Clr Calc Pharmacy 100.9 ml/min; Est GFR (Non-African American) 106.1 ml/min; Potassium 4.3 mmol/L (3.5-5.1)
--- NOTE | 2022-06-27 07:16 | Hospitalist Progress Note ---
Date of Service June 27, 2022 Assessment & Plan (1) Anemia: Plan: Pancytopenia w/ splenomegaly and lymphadenopathy Acute onset of symptoms of fatigue,tachycardia, dizziness, dyspnea, and tingling of extremities DDX: Iron deficiency vs. thalassemia vs. AOCD, hemolysis vs. infection vs. blood dyscrasia/proliferative disorder vs. lymphoma - labs consistent with a microcytic hypochromic anemia with leukopenia - Peripheral smear without schistocytes and no evidence of hemolysis or myelodysplasia - borderline lymphadenopathy seen on CT in addition to splenomegaly - Iron panel/ferritin- Iron 13, TIBC 402, Unsat IBC 389, Transferrin sat- 3%, ferritin 11.5 - LDH - 381 - Haptoglobin pending - PT/INR/PTT- 12.3/1.2/28.5 - Fibrinogen 278 - Anaplasmosis and Babesiosis negative, PCR pending - Lyme and monospot both negative - Ehrlichia, EBV pending - Received 1 unit PRBC 06/26 - Hematology saw pt and felt: further abdominal imaging was necessary to elevate splenomegaly (can be done as an outpatient), iron supplementation after acute infection - Continue to trend CBC Neutropenic Fever - Blood cultures negative after 24 hours - Started on Zosyn and Daptomycin for empiric coverage in addition to doxycycline to cover for tick borne diseases - Had a rash after receiving Zosyn and had also received doxycycline at a similar time; will hold Zosyn/Doxy contoniue daptomycin - Continue Tylenol prn for antipyretic Tachycardia - ECG without acute changes - negative for PE -has improved following PRBC (2) Tachycardia: (3) Splenomegaly: (4) Enlarged lymph node in neck: (5) Neutropenic fever: Admission and Anticipated Discharge Date Admission Date: June 25, 2022 Kermit Chun is a 22 year old female with no significant past medical history that presents with 2 days of fatigue, chills, numbness in toes/feet, dyspnea and racing heart. ED workup notable for leukopenia, anemia, low MCV/MCH, D-dimer of 2480. CTA was negative for PE, probable enlarged spleen and borderline left lower cervical lymph nodes. Overnight she had a rash on her LE B/L after receiving Zosyn. She had also just received the doxycycline. The rash improved with Benadryl. Her mother had a history of doxycycline allergy. Review of Systems Review of Systems: As per HPI Physical Exam Physical Exam: Constitutional: well-appearing, no acute distress HEENT: NCAT, no conjunctival injection CV: regular rhythm, no murmur appreciated, extremities well-perfused, no LE edema Resp: CTABL, no wheezes/rales/rhonchi appreciated, no increased work of breathing GI: soft, nondistended, nontender, BS normoactive MSK: no gross deformities appreciated Skin: warm, dry, no rash appreciated Neuro: alert, oriented, no focal neurologic deficit appreciated Results & Data Results & Data ([facility]) Vital Signs (Past 12 Hours) Vital Signs Temp Pulse Pulse Resp BP BP Pulse Ox 06/27/22 04:00 37.5 C 79 20 101/65 96 06/26/22 22:10 118 H 06/26/22 22:00 36.8 C 87 18 106/69 100 O2 Del Method 06/27/22 04:00 Room Air 06/26/22 22:10 06/26/22 22:00 Room Air (1) Anemia Anemia type: unspecified type Qualified Code(s): D64.9 - Anemia, unspecified
[2022-06-27] MEDS: ACETAMINOPHEN 325 MG TAB PO PRN (07:59)
[2022-06-27 08:26] LABS: Albumin Level 3.7 gm/dl (3.4-5.0); Bilirubin Direct 0.1 mg/dl (0-0.2); Bilirubin,Total 0.6 mg/dl (0.2-1.0); Total Protein 6.1 gm/dl (6.0-8.3)
[2022-06-27] MEDS: DAPTOmycin 350 MG in SYRINGE 0 ML IV SCH (10:34)
[2022-06-27 11:17] LABS: EBV Nuclear Ag Antibody <18.00 U/mL; EBV Virus Capsid Ag IgG Ab <18.00 U/mL; Epstein Barr Virus Early Ag Ab <9.00 U/mL
--- NOTE | 2022-06-27 14:15 | Discharge Summary ---
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 Patient presents to the [facility] today for 2 day history of fatigue, chills with rigors, numbness in toes and feet. This progressed overnight with more shivering and lower back pain, dyspnea, racing HR. She came to the [facility] for evaluation. She had routine labs performed and had a CXR, ECG, and CTA of the chest performed. Her laboratory work was notable for leukopenia, anemia, low MCV/MCH, D-dimer of 2480. CTA of her chest was performed which was negative for PE, probably enlarged spleen and borderline lymphadenopathy at the base of neck. Medicine was consulted for evaluation and admission. Peripheral Smear was ordered stat and interpreted, as original was noted for schistocytes but microcopy reviewed did not reveal. Tick borne labs were sent, hemolysis labs were sent, mono with reflex ordered. Coagulation studies to include fibrinogen also ordered. Peripheral smear confirms microcytic hypochromic anemias and leukopenia, and no overt changes of a myelodysplastic process or hemolytic anemia. Patient will be admitted, given 1u PRBC and await results of the above testing. Patient reports eating well balanced diet, she has a twin sister and older sister with no history of anemias or cancers. Mother and mother family + BRCA breast cancer, she reports testing negative for BRCA gene. 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 She has no pets at home or at school, she reports that she has not been outside really or in grassy areas. No other illness, no new vaccinations or medications as well as no supplements. Denies any cravings of ice or chelating of the corners of her mouth. No other skin lesions reported, no myalgias. COVID test on admission is: NEGATIVE Admission Exam Per Admitting Provider PHYSICAL EXAM: General: awake, alert, no apparent distress Head: Normocephalic, atraumatic ENT: PERRL, EOMI, no pharyngeal exudate, mucous membranes moist, conjunctivae pale, gums pale, tongue normal Neuro: AAO x 3, speech clear and appropriate, strength intact bilaterally 5/5, sensation intact and equal all extremities and dermatomes, no pronator drift Chest: equal rise and fall of the chest, no accessory muscle use, no heaves or thrills, Clear to auscultation, on room air, Cardiac: Regular rate and rhythm, telemetry reviewed, skin warm dry, cap refill <3 seconds, peripheral pulses +2 no JVD, no murmur, no JVD, no edema GI: NABS x 4 quadrants, soft, nontender to palpation, no rebound, guarding or tenderness : Spontaneously voiding, no pain, no CVA tenderness, Extremities: Normal inspection, no peripheral edema or erythema, calfs nontender to palpation Psych: Normal mood and affect Skin: no rash or erythema Principal Diagnosis Mononucleosis Discharge Exam Constitutional: well-appearing, no acute distress HEENT: NCAT, no conjunctival injection CV: regular rhythm, no murmur appreciated, extremities well-perfused, no LE edema Resp: CTABL, no wheezes/rales/rhonchi appreciated, no increased work of breathing GI: soft, nondistended, nontender, BS normoactive MSK: no gross deformities appreciated Skin: warm, dry, no rash appreciated Neuro: alert, oriented, no focal neurologic deficit appreciated Discharge Data Allergies Allergy/AdvReac Type Severity Reaction Status Date / Time No Known Allergies Allergy Unverified 06/25/22 14:46 Consultations 06/25/22 18:31 Consult Hematology Routine Ordered Studies 06/25/22 12:31 CT angio chest PE protocol Stat Hospital Course (1) Anemia: Pancytopenia w/ splenomegaly and lymphadenopathy - Acute onset of symptoms of fatigue,tachycardia, dizziness, dyspnea, and tingling of extremities. Her labs showed a microcytic hypochromic anemia with leukopenia. Initially hemoglobin=7.4 and she received 1 unit PRBC. Her hemoglobin came up to 9.1. - Peripheral smears without schistocytes and no evidence of hemolysis or myelodysplasia. - Upon admission she had a positive D-dimer with a negative CTA. CTA showed borderline cervical lymphadenopathy and splenomegaly. - Iron panel was significant for Iron 13, TIBC 402, Unsat IBC 389, Transferrin sat- 3%, ferritin 11.5. - Ultimately her EBV IgM came back positive and her pancytopenia began to improve. Discussed precautions; no strenuous activities, no alcohol. - She was seen by hematology. Plan: Close follow up, will get CBC prior to PCP apt. F/U with hematology. After acute infection, will need iron supplementation. Will also need repeat imaging of spleen. Ehrlichia still pending. Neutropenic Fever - Blood cultures negative after 24 hours - Started on Zosyn and Daptomycin for empiric coverage in addition to doxycycline to cover for tick borne diseases - Had a rash after receiving Zosyn and had also received doxycycline at a similar time. Will stop antibiotics as cell counts are improving. - Continue Tylenol prn for antipyretic Tachycardia - ECG without acute changes - negative for PE -has improved following PRBC (2) Tachycardia: (3) Splenomegaly: (4) Enlarged lymph node in neck: (5) Neutropenic fever: Total Time Total Time Spent Total Time Spent (In Minutes): 35 minutes including seeing the patient, reviewing data, and preparing discharge paperwork. Discharge Plan Discharge Items Patient Disposition: Home - Self-Care Reason For Visit: ANEMIA Discharge Diagnosis: Mononucleosis Activity: Per Instructions section Non-emergency contact: Primary Care Provider Call non-emergency contact if: you have any medication questions and your symptoms worsen Follow-up/Referrals: [facility] [Primary Care Provider] - Brittney Troy MD [Physician] - Diet: Regular Addtl Attending Provider Instructions: You were admitted to the hospital for mononucleosis. You came in with pancytopenia, which means many of your cell counts were low. We tested you for a variety of different infectious diseases and your EBV came back positive. This is the virus that causes mononucleosis. Your symptoms should improve over time. Because your blood counts are low, you could be more subseptale to other infections. Because your spleen is enlarged avoid any type of strenuous activity as it could cause your spleen to rupture. Avoid any types of sports, especially contract sports. Wait to do any type of exercise until your discuss it at your follow up appointment. Avoid drinking alcohol. Continue to drink plenty of fluids and get lots of rest. You can continue to take Tylenol as needed. A discharge summary will be sent to your primary care physician to ensure continuity of care. Please bring this discharge summary with you to your next office appointment so that your provider can review it at that time. Follow-up appointments: We made you an appointment at [facility] with Dr. Alvarado at 2:50 on 07/01. The office is located at [address] [place] [address]. Please have your lab work done prior to your visit at the [facility] on [address]. 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 Pending Studies at Discharge: Yes Stand-Alone Forms: [facility] Medications and DC Order Prescriptions: No Action No Known Home Medications Discharge Orders: Discharge Order (Routine); Ordered 06/27/22 Ordered By: Zelda Deluna Admission Data Admit Date/Time: 06/25/22 15:41 Attending Provider: Alfredo Garza Admit Provider: Duke Castillo Primary Care Provider: [facility] Other Providers: Brittney Troy Other Interventions: Discharge Summary Assessment (RN) Last Done: 06/27/22 17:05 Supervising Physician Co-Signing Physician Notes I also saw the patient with the resident physician and confirmed persaud portions of the history and physical examination. Fortunately today the patient is feeling much better. She has had an intermittent hive appearing rash in her lower extremities -this does not seem consistent with a mononucleosis type rash associated with penicillin-based antibiotics -it appears most consistent with a allergic reaction. The fever and overall feeling of unwellness has significantly improved. Additionally, her EBV IgM came back significantly elevated consistent with acute EBV infection; this would be consistent with her symptoms and pancytopenia. Repeat blood work later today also reveals a continued improvement in her counts. Blood culture also negative at 48 hours this, combined with the positive EBV, is very reassuring. Imaging does note a mildly enlarged spleen, again consistent with mononucleosis, and we carefully reviewed the precautions need to be taken to lessen the risk of splenic rupture. Patient is very anxious for discharge -I think with the positive EBV, negative blood cultures, and improving blood counts she is safe for discharge with-close clinical follow-up. Will arrange for clinical follow-up in our outpatient office. Discussed symptoms which would necessitate a sooner appointment.
[2022-06-27 16:16] LABS: Hematocrit (blood only) 32.5 % (34.1-44.9); Hemoglobin 9.1 g/dl (12.0-16.0); Mean Corpuscular Hemoglobin 18.2 pg (25.0-34.0); Mean Corpuscular Volume 65.1 fL (80.0-100.0); Platelet Count 139 K/uL (130-400); RDW Coefficient of Variation 25.2 % (11.5-14.5); RDW Standard Deviation 55.8 fL (36.4-46.3); Red Blood Count 4.99 M/uL (3.93-5.22); White Blood Count 4.64 K/ul (4.8-10.8)
[2022-06-27 16:55] LABS: ALC (manual) 2.97 K/uL (1.2-3.4); ANC (manual) 1.39 K/uL (1.4-6.5); Basophils # (manual) 0.05 K/uL (0-0.2); Basophils % (manual) 1 %; Lymphocytes # (manual) 1.76 K/uL (1.2-3.4); Lymphocytes % (manual) 38 %; Microcytosis Present; Monocytes # (manual) 0.28 K/uL (0.24-0.82); Monocytes % (manual) 6 %; Neutrophils # (manual) 1.39 K/uL (1.4-6.5); Neutrophils % (manual) 30 %; Ovalocytes 1+; Reactive Lymphocytes # (manual) 1.21 K/uL; Reactive Lymphocytes % (manual) 26 %; Schistocytes 1+; Tear Drop Cells 1+
[2022-06-29 23:03] LABS: Babesia microti DNA Not Detected (Not Detected); Haptoglobin 226 mg/dL (43-212)
[2022-07-02 18:31] LABS: Ehrlichia chaff IgG Ab <1:64 (<1:64); Ehrlichia chaff IgM Ab <1:20 (<1:20)
== END 2022-06-27 18:25 | disposition home or self-care (01) | DRG 809 ==
LOC: ED 10:18 → 2N 15:41 → SUATTDRO 15:41 → 2N 18:11